=== PATIENT | male | born 1995 | race Caucasian/White ===

== ENCOUNTER 2016-11-15 11:09 | Emergency (ER) | payer OTHER ==
[2016-11-15] MEDS ORDERED: NS 1,000 ML IV ONE ×2 (11:34→13:26)
--- NOTE | 2016-11-15 11:38 | EDPHY ---
H & P Stated Complaint: head pain, swollen glands in neck, chills HPI/ROS: CHIEF COMPLAINT: Body aches, swollen throat, headache HISTORY OF PRESENT ILLNESS: several weeks duration of body aches, swollen throat, intermittent headaches, intermittent cough, intermittent fever. Gradual onset. Duration of several weeks with intermittent, waxing and waning symptoms. Recently traveled to [facility] and symptoms started he just before he returned back home. He has no abdominal or chest pain. No shortness of breath. No urinary complaints. No rash or lesions. No neck pain or stiffness. They are described as mild to moderate symptoms just go away. They do get worse with exercise. They seem to improve with rest and fluids. No other associated complaints or modifying factors. REVIEW OF SYSTEMS: Ten systems reviewed and are negative unless otherwise noted in the HPI EXAMINATION General Appearance: Alert, no distress Head: normocephalic, atraumatic Eyes: Pupils equal and round, no conjunctival pallor or injection . EOMs intact. ENT, Mouth: Mucous membranes moist . Uvula midline. No erythema or edema. No abscess. No abnormality of the floor of the mouth. Neck: anterior or cervical lymphadenopathy.Normal inspection, supple, non- tender . No bony tenderness. Painless range of motion in all planes. No meningismus. Respiratory: Lungs are clear to auscultation . No wheezing, rhonchi or crackles. Cardiovascular: Regular rate and rhythm . No murmurs. Pulses are intact distally with symmetric DP, PT and radial pulses Gastrointestinal: Abdomen is soft and nontender. No tympany or rigidity. No CVA tenderness. Nonacute abdomen Back: non-tender, no bony abnormalities . Neurological: A&O, nonfocal, Strength symmetric in all limbs.normal gait Skin: Warm and dry, no rash . No petechia, purpura or lesions Extremities: Nontender, no pedal edema Psychiatric: Mood and affect normal DIFFERENTIAL DIAGNOSES: Including but not limited to influenza, strep, mono, EBV, viral illness MDM: 11:30 a.m. multiple complaints that are consistent with a likely viral illness. His vital signs were well within normal limits. He is in acute distress. Lungs are clear. He has requested a few of our basic labs as his father is a surgeon and requested that we check these. Labs and swabs are pending at this time. 1:30 p.m. labs do reveal positive mono test. CK is mildly elevated but less than a 1000. Lab tests are otherwise within normal limits. We are providing 2 L of IV fluid resuscitation. He is comfortable with discharge home after this. He will follow up with primary care physician. I did instruct him to refrain from any contact sports for 4 weeks. I did instruct him to follow up with primary care physician for further care and monitoring of this week and to follow up his liver enzymes as they may transiently elevate. He is discharged home in stable condition will do so. SUPERVISION: This patient was independently evaluated without the aide of supervising physician. Source: Patient Exam Limitations: No limitations - Personal History Current Tetanus/Diphtheria Vaccine: Yes Current Tetanus Diphtheria and Acellular Pertussis (TDAP): Yes - Medical/Surgical History Hx Asthma: Yes Hx Chronic Respiratory Disease: No Hx Diabetes: No Hx Cardiac Disease: No Hx Renal Disease: No Hx Cirrhosis: No Hx Alcoholism: No Hx HIV/AIDS: No Hx Splenectomy or Spleen Trauma: No Other PMH: PMH: Asthma. PSHL mindibular mass, tonsils - Social History Smoking Status: Never smoked Constitutional: Initial Vital Signs Temperature (C) 98.1 F 11/15/16 11:13 Heart Rate 81 11/15/16 11:13 Respiratory Rate 18 11/15/16 11:13 Blood Pressure 139/73 H 11/15/16 11:13 O2 Sat (%) 97 11/15/16 11:13 O2 Delivery Mode Room Air Allergies/Adverse Reactions: clindamycin Allergy (Verified 11/15/16 11:17) Home Medications: Medication Instructions Recorded NK [No Known Home Meds] 11/15/16 Medical Decision Making - Data Points Laboratory Results: Laboratory Results 11/15/16 11:50 11/15/16 11:50 11/15/16 11/15/16 11/15/16 Unknown 11:50 11:30 WBC 4.44 10^3/uL (3.80-9.50) RBC 4.57 10^6/uL (4.40-6.38) Hgb 14.0 g/dL (13.7-17.5) Hct 40.6 % (40.0-51.0) MCV 88.8 fL (81.5-99.8) MCH 30.6 pg (27.9-34.1) MCHC 34.5 g/dL (32.4-36.7) RDW 13.1 % (11.5-15.2) Plt Count 148 L 10^3/uL (150-400) MPV 10.5 fL (8.7-11.7) Neut % (Auto) 47.9 % (39.3-74.2) Lymph % (Auto) 40.1 % (15.0-45.0) [place] % (Auto) 9.7 % (4.5-13.0) Eos % (Auto) 1.4 % (0.6-7.6) Baso % (Auto) 0.7 % (0.3-1.7) Nucleat RBC Rel Count 0.0 % (0.0-0.2) Absolute Neuts (auto) 2.13 10^3/uL (1.70-6.50) Absolute Lymphs (auto) 1.78 10^3/uL (1.00-3.00) Absolute Monos (auto) 0.43 10^3/uL (0.30-0.80) Absolute Eos (auto) 0.06 10^3/uL (0.03-0.40) Absolute Basos (auto) 0.03 10^3/uL (0.02-0.10) Absolute Nucleated RBC 0.00 10^3/uL (0-0.01) Immature Gran % 0.2 % (0.0-1.1) Seg Neutrophils % 18 % Band Neutrophils % 17 % Lymphocytes % 43 % Monocytes % 20 % Eosinophils % 2 % Immature Gran # 0.01 10^3/uL (0.00-0.10) Absolute Seg Neuts 0.80 L 10^/uL (1.70-6.50) Absolute Band Neuts 0.75 H 10^3/uL (0.00-0.70) Absolute Lymphocytes 1.91 10^3/uL (1.00-3.00) Absolute Monocytes 0.89 H 10^3/uL (0.30-0.80) Absolute Eosinophils 0.09 10^3/uL (0.03-0.40) RBC/WBC/PLT Morphology NORMAL (NORMAL) Platelet Estimate DECREASED L (ADEQ) Sodium 144 mEq/L (134-144) Potassium 4.1 mEq/L (3.5-5.2) Chloride 108 mEq/L (97-110) Carbon Dioxide 27 mEq/l (22-31) Anion Gap 9 mEq/L (8-16) BUN 12 mg/dL (7-23) Creatinine 0.8 mg/dL (0.7-1.3) Estimated GFR > 60 Glucose 82 mg/dL (70-100) Calcium 8.7 mg/dL (8.5-10.4) Total Bilirubin 0.6 mg/dL (0.1-1.4) Conjugated Bilirubin 0.2 mg/dL (0.0-0.5) Unconjugated Bilirubin 0.4 mg/dL (0.0-1.1) AST 50 IU/L (17-59) ALT 37 IU/L (21-72) Alkaline Phosphatase 57 IU/L (38-126) Creatine Kinase 786 H IU/L (0-224) CK-MB (CK-2) Fraction 2.17 ng/mL (0-3.19) CK-MB (CK-2) % 0.3 % (0.0-4.0) Creatine Kinase Interp NEGATIVE (NEGATIVE) Total Protein 6.7 g/dL (6.3-8.2) Albumin 3.4 L g/dL (3.5-5.0) EBV Capsid Ag IgG Ab Pending EBV Capsid Ag IgM Ab Pending EBV Nuclear Antigen Ab Pending EBV Interpretation Pending Monoscreen POSITIVE H (NEGATIVE) Influenza Typ A,B (DFA) NEGATIVE FOR FLU (NEGATIVE) Group A Strep Screen NEGATIVE (NEGATIVE) Group A Strep DNA Pending Medications Given: Discontinued Medications Sodium Chloride (Ns) 1,000 mls @ 0 mls/hr IV ONCE ONE PRN Reason: Wide Open Stop: 11/15/16 11:35 Last Admin: 11/15/16 11:52 Dose: 1,000 mls Sodium Chloride (Ns) 1,000 mls @ 0 mls/hr IV ONCE ONE PRN Reason: Wide Open Stop: 11/15/16 13:27 Last Admin: 11/15/16 13:29 Dose: 1,000 mls Departure - Departure Disposition: Home, Routine, Self-Care Clinical Impression: Myalgia Cephalgia Qualifiers: Headache type: unspecified Headache chronicity pattern: acute headache Intractability: not intractable Qualifier Code: (R51) Headache Infectious mononucleosis Qualifiers: Infectious mononucleosis etiology: unspecified organism Infectious mononucleosis complication: without complication Qualifier Code: (B27.90) Infectious mononucleosis, unspecified without complication Condition: Good Instructions: Mononucleosis (ED) Additional Instructions: Increased fluid intake. No contact sports for 4 weeks. Follow up with primary care physician for further care. Return to the ER for worsening signs or symptoms, headache, neck pain or stiffness. Referrals: OUT OF STATE,. [Primary Care Provider] - As per Instructions Lizzy Isaac MD [Medical Doctor] - As per Instructions
[2016-11-15 12:16] LABS: % IMMATURE GRANULYOCYTES 0.2 % (0.0-1.1); ABSOLUTE IMMATURE GRANULOCYTES 0.01 10^3/uL (0.00-0.10); ADD DIFF? NO; ADD MORPH? NO; ADD SCAN? YES; FRAGMENT RBC FLAG 0 (0-99); HEMATOCRIT 40.6 % (40.0-51.0); LEFT SHIFT FLG 0 (0-99); LIPEMIA HEMOLYSIS FLAG 90 (0-99); MEAN CELL HEMOGLOBIN 30.6 pg (27.9-34.1); MEAN CELL HEMOGLOBIN CONCENTR. 34.5 g/dL (32.4-36.7); MEAN CELL VOLUME 88.8 fL (81.5-99.8); MEAN PLATELET VOLUME 10.5 fL (8.7-11.7); PLATELET CLUMPS FLAG 10 (0-99); PLATELET COUNT 148 10^3/uL (150-400); RED BLOOD CELL COUNT 4.57 10^6/uL (4.40-6.38); RED CELL DISTRIBUTION WIDTH 13.1 % (11.5-15.2)
[2016-11-15 12:18] LABS: ATYPICAL LYMPHOCYTE FLAG 210 (0-99)
[2016-11-15 12:37] LABS: ALANINE AMINOTRANSFERASE 37 IU/L (21-72); ALBUMIN 3.4 g/dL (3.5-5.0); ALKALINE PHOSPHATASE 57 IU/L (38-126); ANION GAP 9 mEq/L (8-16); ASPARTATE AMINOTRANSFERASE 50 IU/L (17-59); BILIRUBIN,TOTAL 0.6 mg/dL (0.1-1.4); BILIRUBIN-CONJUGATED 0.2 mg/dL (0.0-0.5); BILIRUBIN-UNCONJUGATED 0.4 mg/dL (0.0-1.1); CALCIUM 8.7 mg/dL (8.5-10.4); CARBON DIOXIDE 27 mEq/l (22-31); CHLORIDE 108 mEq/L (97-110); CREATININE 0.8 mg/dL (0.7-1.3); GLOMERULAR FILTRATION RATE > 60; GLUCOSE 82 mg/dL (70-100); POTASSIUM 4.1 mEq/L (3.5-5.2); SODIUM 144 mEq/L (134-144); TOTAL PROTEIN 6.7 g/dL (6.3-8.2)
[2016-11-15 12:38] LABS: SCAN POSITIVE
[2016-11-15 12:44] LABS: PLATELET ESTIMATE DECREASED (ADEQ)
[2016-11-15 13:11] LABS: CK-MB INTERPRETATION NEGATIVE (NEGATIVE); CREATINE KINASE-MB FRACTION 2.17 ng/mL (0-3.19)
[2016-11-15 15:26] VITALS: BP 126/81; PULSE 67; RESP 16; TEMP 98.8; O2SAT 99
[2016-11-16 14:38] LABS: ANTI EBNA Negative (Negative); ANTI VCA/IgG Negative (Negative); ANTI VCA/IgM Positive (Negative)
== END 2016-11-15 15:00 | disposition home or self-care (01) ==
DX: B27.90 Infectious mononucleosis, unspecified without complication (principal); J45.909 Unspecified asthma, uncomplicated
CPT/HCPCS: 86664-90; 86665-90

== ENCOUNTER 2016-11-30 12:01 | Emergency (ER) | payer BC, OTHER ==
[2016-11-30] MEDS ORDERED: KETOROLAC 30 MG/1 ML SDV IVP ONE (14:05)
[2016-11-30] MEDS ORDERED: NS 1,000 ML IV ONE (14:05)
[2016-11-30 14:17] LABS: % IMMATURE GRANULYOCYTES 0.2 % (0.0-1.1); ABSOLUTE IMMATURE GRANULOCYTES 0.02 10^3/uL (0.00-0.10); ADD DIFF? NO; ADD MORPH? NO; ADD SCAN? YES; FRAGMENT RBC FLAG 0 (0-99); HEMATOCRIT 40.6 % (40.0-51.0); HEMOGLOBIN 13.7 g/dL (13.7-17.5); LEFT SHIFT FLG 0 (0-99); LIPEMIA HEMOLYSIS FLAG 80 (0-99); MEAN CELL HEMOGLOBIN 30.1 pg (27.9-34.1); MEAN CELL HEMOGLOBIN CONCENTR. 33.7 g/dL (32.4-36.7); MEAN CELL VOLUME 89.2 fL (81.5-99.8); MEAN PLATELET VOLUME 10.8 fL (8.7-11.7); PLATELET CLUMPS FLAG 10 (0-99); PLATELET COUNT 119 10^3/uL (150-400); RED BLOOD CELL COUNT 4.55 10^6/uL (4.40-6.38); RED CELL DISTRIBUTION WIDTH 13.6 % (11.5-15.2)
[2016-11-30 14:28] LABS: ATYPICAL LYMPHOCYTE FLAG 280 (0-99)
[2016-11-30 14:57] LABS: ALANINE AMINOTRANSFERASE 213 IU/L (21-72); ALBUMIN 3.8 g/dL (3.5-5.0); ALKALINE PHOSPHATASE 78 IU/L (38-126); ANION GAP 9 mEq/L (8-16); ASPARTATE AMINOTRANSFERASE 145 IU/L (17-59); BILIRUBIN,TOTAL 0.7 mg/dL (0.1-1.4); BILIRUBIN-CONJUGATED 0.4 mg/dL (0.0-0.5); BILIRUBIN-UNCONJUGATED 0.3 mg/dL (0.0-1.1); CARBON DIOXIDE 26 mEq/l (22-31); CHLORIDE 107 mEq/L (97-110); CREATININE 0.8 mg/dL (0.7-1.3); GLOMERULAR FILTRATION RATE > 60; GLUCOSE 88 mg/dL (70-100); POTASSIUM 4.6 mEq/L (3.5-5.2); SODIUM 142 mEq/L (134-144); TOTAL PROTEIN 6.8 g/dL (6.3-8.2)
[2016-11-30 15:07] LABS: SCAN POSITIVE
--- NOTE | 2016-11-30 15:08 | EDPHY ---
H & P Time Seen by Provider: 11/30/16 13:04 HPI/ROS: CHIEF COMPLAINT: Fever, sore throat HISTORY OF PRESENT ILLNESS: 21-year-old male presents to the emergency department with fever and sore throat. The patient states that he was in [place] from October 15 to and while he was there he began having sore throat and having subjective fevers and chills. When he returned back to the [place] he went to urgent care he had a negative rapid strep and negative mono. He continued to be symptomatic and came to the emergency department 2-3 weeks ago and had positive Monospot. The patient thought that he was feeling a bit better and then last night started developing fevers and chills and recurring sore throat. He is concerned about possible strep pharyngitis. He did receive a flu shot. Mild rhinorrhea and nasal congestion. No cough. No dysphagia. No chest pain or difficulty breathing. No abdominal pain. No neck or back pain. REVIEW OF SYSTEMS: Constitutional: Fever, chills as above Eyes: No double or blurry vision. ENT: sore throat. Respiratory: No cough, no shortness of breath. Cardiac: No chest pain. Gastrointestinal: No abdominal pain, vomiting or diarrhea. Genitourinary: No dysuria. Musculoskeletal: No neck or back pain. Skin: No rashes. Neurological: No headache. Past Medical/Surgical History: Negative Social History: [employer] student Smoking Status: Never smoked Physical Exam: General Appearance: Alert, no distress. Temperature 37.6degrees. 97% on room air. Eyes: Pupils equal and round. Extraocular motions are all intact. ENT: Mouth: Mucous membranes moist. Mild posterior pharyngeal injection. No exudate. No tonsils. Respiratory: No wheezing, rhonchi, or rales, lungs are clear to auscultation. Cardiovascular: Regular rate and rhythm. Gastrointestinal: Abdomen is soft and nontender, no masses, no rebound or guarding, bowel sounds normal. No hepatosplenomegaly. Neurological: Alert and oriented x 3, cranial nerves II through XII grossly intact Skin: Warm and dry, no rashes. Musculoskeletal: Nontender to palpate along the cervical, thoracic or lumbar spine. Neck is supple. Extremities: Full range of motion and no peripheral edema. Psychiatric: Patient is oriented X 3, there is no agitation. Constitutional: Initial Vital Signs Temperature (C) 37.6 C 11/30/16 12:05 Heart Rate 96 11/30/16 12:05 Respiratory Rate 16 11/30/16 12:05 Blood Pressure 133/78 H 11/30/16 12:05 O2 Sat (%) 97 11/30/16 12:05 O2 Delivery Mode Room Air Allergies/Adverse Reactions: clindamycin Allergy (Severe, Verified 11/30/16 12:05) swells up; diff breathing Home Medications: Medication Instructions Recorded Oseltamivir Phosphate [Tamiflu] 75 mg PO BID #10 cap 11/30/16 Medical Decision Making ED Course/Re-evaluation: 21-year-old male presents to the emergency department with fever and sore throat. Patient is concerned about strep throat. Rapid strep test was negative. Influenza a was positive. The patient's family requested the laboratory studies including CBC and chemistries. White blood cell count is normal at 8000. Atypical lymphocytes are still present. Chemistries are normal with the exception of AST and ALT which are still elevated likely from mononucleosis diagnosed earlier in the month. Influenza A was positive. Rapid strep test was negative. I spoke with both his mother and father via phone with the patient's permission. I explained that I did not feel that the patient required admission to the hospital. The patient was comfortable being discharged home. He understands he will need to repeat LFTs with primary care provider. The patient elected to start Tamiflu given his positive influenza swab. The patient was comfortable being discharged home. Differential Diagnosis: Including but not limited to strep pharyngitis, mononucleosis, influenza, bronchitis, pneumonia, viral syndrome, peritonsillar abscess - Data Points Laboratory Results: Laboratory Results 11/30/16 14:10 11/30/16 14:10 11/30/16 11/30/16 11/30/16 Unknown 14:10 14:10 WBC 8.63 10^3/uL 10^3/uL (3.80-9.50) RBC 4.55 10^6/uL 10^6/uL (4.40-6.38) Hgb 13.7 g/dL g/dL (13.7-17.5) Hct 40.6 % % (40.0-51.0) MCV 89.2 fL fL (81.5-99.8) MCH 30.1 pg pg (27.9-34.1) MCHC 33.7 g/dL g/dL (32.4-36.7) RDW 13.6 % % (11.5-15.2) Plt Count 119 10^3/uL L 10^3/uL (150-400) MPV 10.8 fL fL (8.7-11.7) Neut % (Auto) 26.3 % L % (39.3-74.2) Lymph % (Auto) 67.1 % H % (15.0-45.0) [place] % (Auto) 5.6 % % (4.5-13.0) Eos % (Auto) 0.1 % L % (0.6-7.6) Baso % (Auto) 0.7 % % (0.3-1.7) Nucleat RBC Rel Count 0.0 % % (0.0-0.2) Absolute Neuts (auto) 2.27 10^3/uL 10^3/uL (1.70-6.50) Absolute Lymphs (auto) 5.79 10^3/uL H 10^3/uL (1.00-3.00) Absolute Monos (auto) 0.48 10^3/uL 10^3/uL (0.30-0.80) Absolute Eos (auto) 0.01 10^3/uL L 10^3/uL (0.03-0.40) Absolute Basos (auto) 0.06 10^3/uL 10^3/uL (0.02-0.10) Absolute Nucleated RBC 0.00 10^3/uL 10^3/uL (0-0.01) Immature Gran % 0.2 % % (0.0-1.1) Seg Neutrophils % 13 % % Band Neutrophils % 19 % % Lymphocytes % 63 % % Monocytes % 5 % % Immature Gran # 0.02 10^3/uL 10^3/uL (0.00-0.10) Absolute Seg Neuts 1.12 10^/uL L 10^/uL (1.70-6.50) Absolute Band Neuts 1.64 10^3/uL H 10^3/uL (0.00-0.70) Absolute Lymphocytes 5.44 10^3/uL H 10^3/uL (1.00-3.00) Absolute Monocytes 0.43 10^3/uL 10^3/uL (0.30-0.80) RBC/WBC/PLT Morphology NORMAL (NORMAL) Atypical Lymphocytes 2+ H Platelet Estimate DECREASED L (ADEQ) Smear Review By Pending ESR 6 MM/HR MM/HR (0-15) Sodium 142 mEq/L mEq/L (134-144) Potassium 4.6 mEq/L mEq/L (3.5-5.2) Chloride 107 mEq/L mEq/L (97-110) Carbon Dioxide 26 mEq/l mEq/l (22-31) Anion Gap 9 mEq/L mEq/L (8-16) BUN 16 mg/dL mg/dL (7-23) Creatinine 0.8 mg/dL mg/dL (0.7-1.3) Estimated GFR > 60 Glucose 88 mg/dL mg/dL (70-100) Calcium 9.0 mg/dL mg/dL (8.5-10.4) Total Bilirubin 0.7 mg/dL mg/dL (0.1-1.4) Conjugated Bilirubin 0.4 mg/dL mg/dL (0.0-0.5) Unconjugated Bilirubin 0.3 mg/dL mg/dL (0.0-1.1) AST 145 IU/L H IU/L (17-59) ALT 213 IU/L H IU/L (21-72) Alkaline Phosphatase 78 IU/L IU/L (38-126) Total Protein 6.8 g/dL g/dL (6.3-8.2) Albumin 3.8 g/dL g/dL (3.5-5.0) Influenza A & B (PCR) Group A Strep Screen Group A Strep DNA Pending 11/30/16 11/30/16 13:10 13:10 WBC RBC Hgb Hct MCV MCH MCHC RDW Plt Count MPV Neut % (Auto) Lymph % (Auto) [place] % (Auto) Eos % (Auto) Baso % (Auto) Nucleat RBC Rel Count Absolute Neuts (auto) Absolute Lymphs (auto) Absolute Monos (auto) Absolute Eos (auto) Absolute Basos (auto) Absolute Nucleated RBC Immature Gran % Seg Neutrophils % Band Neutrophils % Lymphocytes % Monocytes % Immature Gran # Absolute Seg Neuts Absolute Band Neuts Absolute Lymphocytes Absolute Monocytes RBC/WBC/PLT Morphology Atypical Lymphocytes Platelet Estimate Smear Review By ESR Sodium Potassium Chloride Carbon Dioxide Anion Gap BUN Creatinine Estimated GFR Glucose Calcium Total Bilirubin Conjugated Bilirubin Unconjugated Bilirubin AST ALT Alkaline Phosphatase Total Protein Albumin Influenza A & B (PCR) POSITIVE FOR FLU A H (NEGATIVE) Group A Strep Screen NEGATIVE (NEGATIVE) Group A Strep DNA Medications Given: Discontinued Medications Acetaminophen (Tylenol) 650 mg PO EDNOW ONE Stop: 11/30/16 16:08 Last Admin: 11/30/16 16:10 Dose: 650 mg Sodium Chloride (Ns) 1,000 mls @ 0 mls/hr IV ONCE ONE PRN Reason: Wide Open Stop: 11/30/16 14:06 Last Admin: 11/30/16 14:26 Dose: 1,000 mls Ketorolac Tromethamine (Toradol) 30 mg IVP EDNOW ONE Stop: 11/30/16 14:06 Last Admin: 11/30/16 14:26 Dose: 30 mg Departure - Departure Disposition: Home, Routine, Self-Care Clinical Impression: Influenza A Condition: Good Instructions: Influenza (ED) Additional Instructions: Ibuprofen 600 mg every 8 hours as needed for pain. Return if you developed difficulty swallowing, increasing pain, rash, or if you feel worse in any way. Tamiflu twice daily for 5 days since you tested positive for influenza A and your fever started last night. You should avoid all contact sports or any activity that might cause blunt abdominal injury until cleared by primary care provider. You should follow up with primary care provider in 2 weeks to have her liver function tests repeated to make sure that they have normalized. Referrals: [facility] [Other] - As per Instructions Stand Alone Forms: School Excuse Prescriptions: Oseltamivir Phosphate [Tamiflu] 75 mg PO BID #10 cap
[2016-11-30 15:11] LABS: PLATELET ESTIMATE DECREASED (ADEQ)
[2016-11-30 16:07] VITALS: RESP 18; O2SAT 96
[2016-11-30] MEDS ORDERED: ACETAMINOPHEN 325 MG TAB PO ONE (16:07)
[2016-11-30 16:14] LABS: SEDIMENTATION RATE 6 MM/HR (0-15)
[2016-11-30 16:37] VITALS: BP 112/65; PULSE 69; TEMP 99
== END 2016-11-30 16:36 | disposition home or self-care (01) ==
DX: J10.1 Influenza due to other identified influenza virus with other respiratory manifestations (principal)
CPT/HCPCS: 96374; J1885

== ENCOUNTER 2016-12-05 11:53 | Emergency (ER) | payer BC ==
--- NOTE | 2016-12-05 12:46 | EDPHY ---
HPI/HX/ROS/PE/MDM Narrative: CHIEF COMPLAINT: Abdominal pain, continued fever. HPI: The patient is a 21-year-old male with a recent history of influenza and mononucleosis who presents with upper abdominal pain for the last 2 days. He has not had a bowel movement over this time. He admits associated nausea, continued fever, and cough. He denies vomiting. He was in [place] from October 15 to the . He does note getting an episode of chills on this trip. He was diagnosed with bronchitis at Urgent Care and given Augmentin. A week later he went to [facility] and had a negative Monospot. November 15 he was diagnosed with Patrick here. He felt better but came back the with fever and was diagnosed with Flu A. 2 days ago he developed the upper abdominal pressure which has led to his presentation today. REVIEW OF SYSTEMS: Aside from elements discussed in the HPI, a comprehensive 10-point review of systems was reviewed and is negative. PMH: Jaw abscess. No known immunologic deficiency. SOCIAL HISTORY: [employer] Student. Single. From [place]. PHYSICAL EXAM: General:Patient is alert, in no acute distress. ENT:Eyes are normal to inspection. ENT inspection normal. Neck: Normal inspection. Full range of motion. Respiratory:No respiratory distress. Breath sounds normal bilaterally. Cardiovascular: Regular rate and rhythm. Strong peripheral pulses. Normal cap refill. Abdomen: There are no peritoneal signs. There are normal bowel sounds. Mild LUQ tenderness is present. Back: Normal to inspection. No tenderness to palpation. Skin: Normal color. No rash. Warm and dry. Extremities: Normal appearance. Full range of motion. Neuro: Oriented x3. Normal motor function. Normal sensory function. ED Course: An IV was established and labs ordered. Abdominal ultrasound ordered. Chest x- ray obtained. Study: PA and Lateral Chest X-ray Indication: Fever. Results: I viewed the images myself on the PACS system. The radiologist interpretation per Dr. Medley, radiology, is: 1. Clear lungs No evidence of pneumonia. 2. Equivocal splenomegaly. Study: Ultrasound of the: abdomen. Indication: Pain, fever. Results: Splenomegaly. The study was read by the radiologist Dr. Lira. I viewed the images myself on the PACS system. 1429: Consulted with Dr. Salgado, infectious disease. He will see the patient in his office. 1450: I discussed the case with Dr. Early from GI. He recommends following LFTs to ensure improvement. He does not feel further workup is indicated here in the ED. MDM: This patient presents with worsening upper abdominal pain which I believe is attributable to splenomegaly and elevated liver function tests. His signs and symptoms are all consistent with Ebstein Samson virus. I spoke extensively with patient's mother, his father, gastroenterology and infectious disease. All are in agreement that we can proceed with further testing as an outpatient. The patient is clinically very well appearing and has a benign abdomen. I see no evidence of bowel obstruction, bowel perforation, appendicitis, severe sepsis, septic shock or liver failure. - Data Points Laboratory Results: Laboratory Results 12/05/16 12:45 12/05/16 12:45 12/05/16 12/05/16 12/05/16 14:30 13:28 12:55 WBC RBC Hgb Hct MCV MCH MCHC RDW Plt Count MPV Neut % (Auto) Lymph % (Auto) Patrick % (Auto) Eos % (Auto) Baso % (Auto) Nucleat RBC Rel Count Absolute Neuts (auto) Absolute Lymphs (auto) Absolute Monos (auto) Absolute Eos (auto) Absolute Basos (auto) Absolute Nucleated RBC Immature Gran % Seg Neutrophils % Band Neutrophils % Lymphocytes % Immature Gran # Absolute Seg Neuts Absolute Band Neuts Absolute Lymphocytes Atypical Lymphocytes Platelet Estimate Large Platelets Microcytic Cells Smear Review By PT INR APTT VBG Lactic Acid 1.2 mmol/L mmol/L (0.7-2.1) Sodium Potassium Chloride Carbon Dioxide Anion Gap BUN Creatinine Estimated GFR Glucose Calcium Total Bilirubin Conjugated Bilirubin Unconjugated Bilirubin AST ALT Alkaline Phosphatase Troponin I Total Protein Albumin Lipase Urine Color Pending Urine Appearance Pending Urine pH Pending Ur Specific [place] Pending Urine Protein Pending Urine Ketones Pending Urine Blood Pending Urine Nitrate Pending Urine Bilirubin Pending Urine Urobilinogen Pending Ur Leukocyte Esterase Pending Urine Glucose Pending Hepatitis A IgM Ab Pending Hep Bs Antigen Pending Hep B Core IgM Ab Pending Hepatitis C Antibody Pending 12/05/16 12/05/16 12/05/16 12:45 12:45 12:45 WBC 9.28 10^3/uL 10^3/uL (3.80-9.50) RBC 4.99 10^6/uL 10^6/uL (4.40-6.38) Hgb 14.8 g/dL g/dL (13.7-17.5) Hct 43.1 % % (40.0-51.0) MCV 86.4 fL fL (81.5-99.8) MCH 29.7 pg pg (27.9-34.1) MCHC 34.3 g/dL g/dL (32.4-36.7) RDW 13.4 % % (11.5-15.2) Plt Count 114 10^3/uL L 10^3/uL (150-400) MPV 11.6 fL fL (8.7-11.7) Neut % (Auto) Not Reported Lymph % (Auto) Not Reported Patrick % (Auto) Not Reported Eos % (Auto) Not Reported Baso % (Auto) Not Reported Nucleat RBC Rel Count 0.0 % % (0.0-0.2) Absolute Neuts (auto) Not Reported Absolute Lymphs (auto) Not Reported Absolute Monos (auto) Not Reported Absolute Eos (auto) Not Reported Absolute Basos (auto) Not Reported Absolute Nucleated RBC 0.00 10^3/uL 10^3/uL (0-0.01) Immature Gran % Not Reported Seg Neutrophils % 21 % % Band Neutrophils % 4 % % Lymphocytes % 75 % % Immature Gran # Not Reported Absolute Seg Neuts 1.95 10^/uL 10^/uL (1.70-6.50) Absolute Band Neuts 0.37 10^3/uL 10^3/uL (0.00-0.70) Absolute Lymphocytes 6.96 10^3/uL H 10^3/uL (1.00-3.00) Atypical Lymphocytes 3+ H Platelet Estimate DECREASED L (ADEQ) Large Platelets PRESENT H Microcytic Cells 1+ H Smear Review By Pending PT 14.5 SEC SEC (12.0-15.0) INR 1.14 (0.83-1.16) APTT 31.4 SEC SEC (23.0-38.0) VBG Lactic Acid Sodium 140 mEq/L mEq/L (134-144) Potassium 4.2 mEq/L mEq/L (3.5-5.2) Chloride 103 mEq/L mEq/L (97-110) Carbon Dioxide 27 mEq/l mEq/l (22-31) Anion Gap 10 mEq/L mEq/L (8-16) BUN 13 mg/dL mg/dL (7-23) Creatinine 0.9 mg/dL mg/dL (0.7-1.3) Estimated GFR > 60 Glucose 77 mg/dL mg/dL (70-100) Calcium 9.4 mg/dL mg/dL (8.5-10.4) Total Bilirubin 1.1 mg/dL mg/dL (0.1-1.4) Conjugated Bilirubin 0.4 mg/dL mg/dL (0.0-0.5) Unconjugated Bilirubin 0.7 mg/dL mg/dL (0.0-1.1) AST 1220 IU/L H IU/L (17-59) ALT 1542 IU/L H IU/L (21-72) Alkaline Phosphatase 175 IU/L H IU/L (38-126) Troponin I 0.026 ng/mL ng/mL (0-0.034) Total Protein 7.5 g/dL g/dL (6.3-8.2) Albumin 4.2 g/dL g/dL (3.5-5.0) Lipase 122.0 IU/L IU/L (23-300) Urine Color Urine Appearance Urine pH Ur Specific [place] Urine Protein Urine Ketones Urine Blood Urine Nitrate Urine Bilirubin Urine Urobilinogen Ur Leukocyte Esterase Urine Glucose Hepatitis A IgM Ab Hep Bs Antigen Hep B Core IgM Ab Hepatitis C Antibody 12/05/16 12:45 WBC RBC Hgb Hct MCV MCH MCHC RDW Plt Count MPV Neut % (Auto) Lymph % (Auto) Patrick % (Auto) Eos % (Auto) Baso % (Auto) Nucleat RBC Rel Count Absolute Neuts (auto) Absolute Lymphs (auto) Absolute Monos (auto) Absolute Eos (auto) Absolute Basos (auto) Absolute Nucleated RBC Immature Gran % Seg Neutrophils % Band Neutrophils % Lymphocytes % Immature Gran # Absolute Seg Neuts Absolute Band Neuts Absolute Lymphocytes Atypical Lymphocytes Platelet Estimate Large Platelets Microcytic Cells Smear Review By PT INR APTT VBG Lactic Acid REJ Sodium Potassium Chloride Carbon Dioxide Anion Gap BUN Creatinine Estimated GFR Glucose Calcium Total Bilirubin Conjugated Bilirubin Unconjugated Bilirubin AST ALT Alkaline Phosphatase Troponin I Total Protein Albumin Lipase Urine Color Urine Appearance Urine pH Ur Specific [place] Urine Protein Urine Ketones Urine Blood Urine Nitrate Urine Bilirubin Urine Urobilinogen Ur Leukocyte Esterase Urine Glucose Hepatitis A IgM Ab Hep Bs Antigen Hep B Core IgM Ab Hepatitis C Antibody General Time Seen by Provider: 12/05/16 12:45 Initial Vital Signs: Initial Vital Signs Temperature (C) 37.4 C 12/05/16 12:11 Heart Rate 91 12/05/16 12:11 Respiratory Rate 18 12/05/16 12:11 Blood Pressure 120/65 12/05/16 12:11 O2 Sat (%) 97 12/05/16 12:11 O2 Delivery Mode Room Air Allergies/Adverse Reactions: clindamycin Allergy (Severe, Verified 12/05/16 12:13) swells up; diff breathing Home Medications: Medication Instructions Recorded Ibuprofen [Motrin (*)] 600 mg PO 12/05/16 Departure - Departure Disposition: Home, Routine, Self-Care Clinical Impression: Elevated LFTs, Influenza, Mononucleosis Condition: Good Instructions: Mononucleosis (ED), Influenza (ED) Additional Instructions: Call Dr. Salgado, infectious disease, today to set up a follow up appointment. He is expecting you. Drink plenty of fluids and be sure to get rest. Return to the emergency department if you experience any serious worsening of condition. Referrals: Flakito Salgado MD [Medical Doctor] - As per Instructions Earl Early MD [Medical Doctor] - As per Instructions Report Scribed for: Leroy Tipton Report Scribed by: Marciano Rodriguez Date of Report: 12/05/16 Time of Report: 12:59 Physician Review and Approval Statement: Portions of this note were transcribed by a medical equipment sales. I personally performed a history, physical exam, medical decision making, and confirmed accuracy of information the transcribed note.
[2016-12-05 13:23] LABS: ADD MORPH? NO; ADD SCAN? YES; FRAGMENT RBC FLAG 0 (0-99); HEMATOCRIT 43.1 % (40.0-51.0); HEMOGLOBIN 14.8 g/dL (13.7-17.5); LEFT SHIFT FLG 0 (0-99); LIPEMIA HEMOLYSIS FLAG 90 (0-99); MEAN CELL HEMOGLOBIN 29.7 pg (27.9-34.1); MEAN CELL HEMOGLOBIN CONCENTR. 34.3 g/dL (32.4-36.7); MEAN CELL VOLUME 86.4 fL (81.5-99.8); MEAN PLATELET VOLUME 11.6 fL (8.7-11.7); PLATELET CLUMPS FLAG 0 (0-99); PLATELET COUNT 114 10^3/uL (150-400); RED BLOOD CELL COUNT 4.99 10^6/uL (4.40-6.38); RED CELL DISTRIBUTION WIDTH 13.4 % (11.5-15.2)
[2016-12-05 13:24] LABS: ATYPICAL LYMPHOCYTE FLAG 300 (0-99)
[2016-12-05 13:35] LABS: INR 1.14 (0.83-1.16); PROTIME(PATIENT) 14.5 SEC (12.0-15.0)
[2016-12-05 13:36] LABS: APTT 31.4 SEC (23.0-38.0)
[2016-12-05 13:37] LABS: ALBUMIN 4.2 g/dL (3.5-5.0); ALKALINE PHOSPHATASE 175 IU/L (38-126); ANION GAP 10 mEq/L (8-16); BILIRUBIN,TOTAL 1.1 mg/dL (0.1-1.4); BILIRUBIN-CONJUGATED 0.4 mg/dL (0.0-0.5); BILIRUBIN-UNCONJUGATED 0.7 mg/dL (0.0-1.1); CALCIUM 9.4 mg/dL (8.5-10.4); CARBON DIOXIDE 27 mEq/l (22-31); CHLORIDE 103 mEq/L (97-110); CREATININE 0.9 mg/dL (0.7-1.3); GLOMERULAR FILTRATION RATE > 60; GLUCOSE 77 mg/dL (70-100); POTASSIUM 4.2 mEq/L (3.5-5.2); SODIUM 140 mEq/L (134-144); TOTAL PROTEIN 7.5 g/dL (6.3-8.2)
[2016-12-05 13:43] LABS: ADD DIFF? YES; SCAN POSITIVE
[2016-12-05 13:47] LABS: TROPONIN I 0.026 ng/mL (0-0.034)
[2016-12-05 13:48] LABS: PLATELET ESTIMATE DECREASED (ADEQ)
[2016-12-05 13:49] LABS: LARGE PLATELETS PRESENT; MICROCYTES 1+
[2016-12-05 14:20] LABS: ALANINE AMINOTRANSFERASE 1542 IU/L (21-72); ASPARTATE AMINOTRANSFERASE 1220 IU/L (17-59)
[2016-12-05 14:32] VITALS: RESP 20
[2016-12-05 15:07] LABS: COLOR YELLOW; LEUKOCYTE ESTERASE,URINE NEGATIVE (NEGATIVE); NITRITE,URINE NEGATIVE (NEGATIVE)
[2016-12-05 16:28] VITALS: BP 129/79; PULSE 91; TEMP 99.1; O2SAT 96
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
[2016-12-10 13:00] LABS: HIV-1 RNA PCR < 1.00 copy/mL (<20)
== END 2016-12-05 16:28 | disposition home or self-care (01) ==
DX: R74.0 Nonspecific elevation of levels of transaminase and lactic acid dehydrogenase [LDH] (principal); R74.8 Abnormal levels of other serum enzymes; J11.1 Influenza due to unidentified influenza virus with other respiratory manifestations; B27.90 Infectious mononucleosis, unspecified without complication
CPT/HCPCS: 87536-90